=== PATIENT | female | born 1995 | race Caucasian/White ===

== ENCOUNTER 2020-04-18 12:04 | Emergency (ER) | payer OTHER ==
[~2020-04-18] VITALS: Ht 190 cm; Wt 106.5 kg
--- NOTE | 2020-04-18 13:22 | ED Cough/URI ---
General Chief Complaint: Respiratory Problems Stated Complaint: CP,SOB, Nursing Triage Note: PT PRESENTS TO ED VIA POV FROM HOME WITH COMPLAINTS OF CHEST TIGHTNESS X 3 DAYS, INCREASED WITH INSPIRATION. PT ALSO REPORTS FEELING SOA AND FATIGUED. PT WAS TESTED FOR COVID AT [facility] ON 04/16. REPORTS IT WAS NEGATIVE. Sepsis Screen: No Definite Risk Source: patient Exam Limitations: no limitations History of Present Illness Date Seen by Provider: Apr 18, 2020 Time Seen by Provider: 13:21 Initial Comments This is a 24-year-old male presents to the ER with complaints of chest tightness and cough that started on Thursday. Received COVID test at that time which was negative. States shortness of air is worse with activity. Presents with concerns that his initial Covid may have been a false negative. Denies fevers, chills, chest pain, nausea, vomiting, diarrhea, and abdominal pain. Allergies and Home Medications Allergies Coded Allergies: Penicillins (Verified Allergy, Unknown, 04/18/20) Home Medications Albuterol Sulfate 1 Puff Puff, 2 PUFF INH Q4H PRN for SHORTNESS OF BREATH 1 PUFF = 90 MCG Prescribed by: YANNICK KUMAR on 04/18/20 1519 Patient Home Medication List Home Medication List Reviewed: Yes Review of Systems Review of Systems Constitutional: see HPI EENTM: no symptoms reported Respiratory: no symptoms reported Cardiovascular: see HPI Gastrointestinal: no symptoms reported Genitourinary: no symptoms reported Musculoskeletal: no symptoms reported Skin: no symptoms reported Psychiatric/Neurological: No Symptoms Reported Hematologic/Lymphatic: No Symptoms Reported Immunological/Allergic: no symptoms reported Past Yyljuup-Qayqyj-Rtothp Hx Patient Social History Alcohol Use: Occasionally Uses Recreational Drug Use: No Smoking Status: Never a Smoker Recent Foreign Travel: No Contact w/Someone Who Travel: No Recent Infectious Disease Expo: No Recent Hopitalizations: No Physical Abuse: No Sexual Abuse: No Mistreated: No Fear: No Seasonal Allergies Seasonal Allergies: No Past Medical History Surgeries: Yes (HERNIA REPAIR) Respiratory: No Cardiac: No Neurological: No Genitourinary: No Gastrointestinal: No Musculoskeletal: No Endocrine: No HEENT: No Cancer: No Psychosocial: No Physical Exam Vital Signs - First Documented 04/18/20 12:29 Temp 36.6 Pulse 91 Resp 16 B/P (MAP) 120/83 (95) Pulse Ox 97 Capillary Refill : Less Than 3 Seconds Height: '" Weight: lbs. oz. kg; 29.00 BMI Method: General Appearance: WD/WN, no apparent distress HEENT: PERRL/EOMI, pharynx normal, other (Tonsils are surgically absent) Neck: full range of motion Respiratory: lungs clear, normal breath sounds, no respiratory distress, no accessory muscle use Cardiovascular: regular rate, rhythm, no murmur; No friction rub Gastrointestinal: normal bowel sounds, non tender, soft Neurologic/Psychiatric: no motor/sensory deficits, alert, normal mood/affect, oriented x 3 Skin: normal color, warm/dry Progress/Results/Core Measures Suspected Sepsis Recent Fever Within 48 Hours: No Infection Criteria Present: Suspected New Infection New/Unexplained Altered Menta: No Sepsis Screen: No Definite Risk SIRS Temperature: Pulse: 91 Respiratory Rate: 16 Laboratory Tests 04/18/20 13:44: White Blood Count 6.7 Blood Pressure 120 /83 Mean: 95 Laboratory Tests 04/18/20 13:44: Creatinine 0.95, Platelet Count 232, Total Bilirubin 0.7 Results/Orders Lab Results Laboratory Tests Test 04/18/20 13:44 04/18/20 13:47 Range/Units White Blood Count 6.7 4.3-11.0 10^3/uL Red Blood Count 5.34 H 3.80-5.11 10^6/uL Hemoglobin 14.7 11.5-16.0 g/dL Hematocrit 44 35-52 % Mean Corpuscular Volume 83 80-99 fL Mean Corpuscular Hemoglobin 28 25-34 pg Mean Corpuscular Hemoglobin Concent 33 32-36 g/dL Red Cell Distribution Width 12.1 10.0-14.5 % Platelet Count 232 130-400 10^3/uL Mean Platelet Volume 10.3 9.0-12.2 fL Immature Granulocyte % (Auto) 0 % Neutrophils (%) (Auto) 55 42-75 % Lymphocytes (%) (Auto) 31 12-44 % Monocytes (%) (Auto) 10 0-12 % Eosinophils (%) (Auto) 2 0-10 % Basophils (%) (Auto) 1 0-10 % Neutrophils # (Auto) 3.7 1.8-7.8 10^3/uL Lymphocytes # (Auto) 2.1 1.0-4.0 10^3/uL Monocytes # (Auto) 0.7 0.0-1.0 10^3/uL Eosinophils # (Auto) 0.1 0.0-0.3 10^3/uL Basophils # (Auto) 0.1 0.0-0.1 10^3/uL Immature Granulocyte # (Auto) 0.0 0.0-0.1 10^3/uL Sodium Level 140 135-145 MMOL/L Potassium Level 4.4 3.6-5.0 MMOL/L Chloride Level 105 98-107 MMOL/L Carbon Dioxide Level 23 21-32 MMOL/L Anion Gap 12 5-14 MMOL/L Blood Urea Nitrogen 10 7-18 MG/DL Creatinine 0.95 0.60-1.30 MG/DL Estimat Glomerular Filtration Rate > 60 BUN/Creatinine Ratio 11 Glucose Level 101 70-105 MG/DL Calcium Level 8.9 8.5-10.1 MG/DL Corrected Calcium 8.6 8.5-10.1 MG/DL Total Bilirubin 0.7 0.1-1.0 MG/DL Aspartate Amino Transf (AST/SGOT) 27 5-34 U/L Alanine Aminotransferase (ALT/SGPT) 25 0-55 U/L Alkaline Phosphatase 51 40-136 U/L C-Reactive Protein High Sensitivity 0.07 0.00-0.50 MG/DL Total Protein 7.8 6.4-8.2 GM/DL Albumin 4.4 3.2-4.5 GM/DL Coronavirus 2019 (DON) Negative Negative Troponin I < 0.028 <0.028 NG/ML My Orders Orders - YANNICK KUMAR APRN Chest Pa/Lat (2 View) (04/18/20 13:19) Cbc With Automated Diff (04/18/20 13:19) Comprehensive Metabolic Panel (04/18/20 13:19) Covid 19 Inhouse Test (04/18/20 13:19) Hs C Reactive Protein (04/18/20 13:19) Ekg Tracing (04/18/20 14:47) Troponin I (04/18/20 14:47) Vital Signs/I&O 04/18/20 04/18/20 12:29 15:26 Temp 36.6 36.6 Pulse 91 87 Resp 16 16 B/P (MAP) 120/83 (95) 132/74 (95) Pulse Ox 97 98 Capillary Refill : Less Than 3 Seconds Blood Pressure Mean: 95 Progress Note : Progress Note Initiated Covid and chest pain work-up. Labs and chest x-ray reviewed, all are unremarkable. CRP is within normal range which is reassuring for any inflammatory/infectious process. Reviewed findings with patient, recommended use of albuterol inhaler as needed for shortness of air and to follow-up with his primary care provider if symptoms persist. Also discussed returning to ER if symptoms worsened. Verbalized understanding and he is agreeable with discharge plan. Diagnostic Imaging Diagonstic Imaging: Xray Plain Films/CT/US/NM/MRI: chest Comments NAME: ADEN MONTEZ [facility] REC#: [id number] PT STATUS: DEP ER : 1995 PHYSICIAN: YANNICK KUMAR APRN ADMIT DATE: 04/18/20/ER Signed Date of Exam:04/18/20 CHEST PA/LAT (2 VIEW) INDICATION: Chest tightness. COMPARISON: None FINDINGS: Frontal and lateral views of the chest demonstrate normal heart size and pulmonary vascularity. The lungs are clear. There are no signs of infiltrate, pleural effusions or pneumothoraces. The visualized osseous structures show no acute abnormalities. IMPRESSION: 1. No acute process. No signs of infiltrates, effusions or pneumothoraces. Dictated by: Dictated on workstation # [id number] Dict: 04/18/20 1428 Trans: 04/18/20 1603 [facility] [id number] Interpreted by: ELEN JAY MD Electronically signed by: ELEN JAY MD 04/18/20 1603 Departure Impression Primary Impression: Costochondral pain Disposition: 01 HOME, SELF-CARE Condition: Stable/Unchanged Departure-Patient Inst. Decision time for Depature: 15:17 Referrals: CHAU DIXON MD (PCP/Family) Primary Care Physician Patient Instructions: Costochondritis Add. Discharge Instructions: Plan: 1. Discharge home. 2. May take Ibuprofen 600mg by mouth as needed for pain. Alternate with 650mg of Tylenol every 4 hours as needed. Take Ibuprofen with food. 3. Use Albuterol inhaler 2 puffs as needed for shortness of breath every 4 hours. 4. Return for any new or concerning symptoms. 5. Follow up with your primary care provider if symptoms persist. All discharge instructions reviewed with patient and/or family. Voiced understanding. Scripts Albuterol Sulfate (VENTOLIN HFA) 1 Puff Puff 2 PUFF INH Q4H PRN for SHORTNESS OF BREATH, #1 INHALER 0 Refills 1 PUFF = 90 MCG Prov: YANNICK KUMAR DRY WALL APPLICATOR 04/18/20 YANNICK KUMAR DRY WALL APPLICATOR Apr 18, 2020 13:22
[2020-04-18 13:48] LABS: BASOPHILS # (AUTO) 0.1 10^3/uL (0.0-0.1); BASOPHILS % (AUTO) 1 % (0-10); EOSINOPHILS # (AUTO) 0.1 10^3/uL (0.0-0.3); EOSINOPHILS % (AUTO) 2 % (0-10); HEMATOCRIT 44 % (35-52); HEMOGLOBIN 14.7 g/dL (11.5-16.0); LYMPHOCYTES # (AUTO) 2.1 10^3/uL (1.0-4.0); LYMPHOCYTES % (AUTO) 31 % (12-44); MEAN CORPUSCULAR HEMOGLOBIN 28 pg (25-34); MEAN CORPUSCULAR HGB CONC 33 g/dL (32-36); MEAN CORPUSCULAR VOLUME 83 fL (80-99); MEAN PLATELET VOLUME 10.3 fL (9.0-12.2); MONOCYTES # (AUTO) 0.7 10^3/uL (0.0-1.0); MONOCYTES % (AUTO) 10 % (0-12); NEUTROPHILS # (AUTO) 3.7 10^3/uL (1.8-7.8); NEUTROPHILS % (AUTO) 55 % (42-75); PLATELET COUNT 232 10^3/uL (130-400); WHITE BLOOD COUNT 6.7 10^3/uL (4.3-11.0)
[2020-04-18 13:59] LABS: ALBUMIN 4.4 GM/DL (3.2-4.5)
[2020-04-18 14:00] LABS: CHLORIDE 105 MMOL/L (98-107); POTASSIUM 4.4 MMOL/L (3.6-5.0); SODIUM 140 MMOL/L (135-145)
[2020-04-18 14:01] LABS: CALCIUM 8.9 MG/DL (8.5-10.1)
[2020-04-18 14:02] LABS: GLUCOSE 101 MG/DL (70-105); TOTAL PROTEIN 7.8 GM/DL (6.4-8.2)
[2020-04-18 14:03] LABS: CARBON DIOXIDE 23 MMOL/L (21-32)
[2020-04-18 14:04] LABS: BILIRUBIN,TOTAL 0.7 MG/DL (0.1-1.0)
[2020-04-18 14:05] LABS: ALKALINE PHOSPHATASE 51 U/L (40-136)
[2020-04-18 14:06] LABS: CREATININE SERUM 0.95 MG/DL (0.60-1.30); GFR ESTIMATED > 60
[2020-04-18 14:07] LABS: BUN/CREATININE RATIO 11
[2020-04-18 14:08] LABS: ALANINE AMINOTRANSFERASE 25 U/L (0-55)
--- NOTE | 2020-04-18 14:30 | Diagnostic Imaging Report ---
INDICATION: Chest tightness. COMPARISON: None FINDINGS: Frontal and lateral views of the chest demonstrate normal heart size and pulmonary vascularity. The lungs are clear. There are no signs of infiltrate, pleural effusions or pneumothoraces. The visualized osseous structures show no acute abnormalities. IMPRESSION: 1. No acute process. No signs of infiltrates, effusions or pneumothoraces. Dictated by: Dictated on workstation # [id number]
[2020-04-18] MEDS ORDERED: RT-ALBUINH INH (15:19)
[2020-04-18 15:26] VITALS: BP 132/74
== END 2020-04-18 15:26 | disposition home or self-care (01) ==
LOC: EDUNIT# 12:04 → ER 12:07
DX: R07.1 Chest pain on breathing (principal); Z20.828 Contact with and (suspected) exposure to other viral communicable diseases; Z88.0 Allergy status to penicillin
CPT/HCPCS: 71046; 80053; 84484; 85025; 86141; 93005; 99284; U0002; 36415; 87635

== ENCOUNTER 2021-08-13 11:29 | Day surgery (SDC) | payer OTHER ==
[~2021-08-13] VITALS: Ht 190.5 cm; Wt 113.3 kg
[2021-08-13] VITALS (9 sets, daily range): BP systolic 114–120; BP diastolic 73–83
[~2021-08-13 11:29] MED LIST: RT-ALBUINH INH
[2021-08-13] MEDS ORDERED: NS IV 1000 ML 1,000 ML IV SCH (12:00)
--- NOTE | 2021-08-13 12:00 | ED Abdominal Pain ---
General Chief Complaint: Abdominal/GI Problems Stated Complaint: ABD PAIN Source of Information: Patient Exam Limitations: No Limitations History of Present Illness Date Seen by Provider: Aug 13, 2021 Time Seen by Provider: 11:53 Initial Comments Patient is a 26-year-old male who presents to the emergency department today with a chief complaint of right lower quadrant abdominal pain. Patient states he has had gradual onset of symptoms over about the last week or so. He has not really taken anything for the pain, yesterday he complains that he had some loose stool, nonblack nonbloody. He states the pain steadily increased last night where he was not able to sleep very well. He still did not take anything for the pain. Appetite was slightly decreased yesterday evening. He states this morning when he woke up he had a little discomfort with urination and his urine seemed darker than normal. He is very slightly nauseous. He has not had anything to eat today his only intake has been a vitamin when he woke up and a half a cup of water at about 930. He reports no fevers or chills. No recent URI symptoms. He has not had any prior abdominal surgeries but did have a hernia repair, he cannot remember which side was repaired. Currently rating his pain a "6". Declines pain medications because he states as long as he is still he has really no discomfort. All other review of systems reviewed and negative except as stated Timing/Duration: 1 Week Severity/Quality: Moderate, Aching Location: RLQ Radiation: No Radiation Modifying Factors: Worsens With Movement Associated Symptoms: Nausea/Vomiting (mild) Allergies and Home Medications Allergies Coded Allergies: Penicillins (Verified Allergy, Unknown, 04/18/20) Patient Home Medication List Home Medication List Reviewed: Yes Albuterol Sulfate (Ventolin Hfa) 1 Puff Puff, 2 PUFF INH Q4H PRN for SHORTNESS OF BREATH Prescribed by: YANNICK KUMAR on 04/18/20 3456 Review of Systems Review of Systems Constitutional: see HPI EENTM: No Symptoms Reported Respiratory: No Symptoms Reported Cardiovascular: No Symptoms Reported Gastrointestinal: Abdominal Pain, Diarrhea (loose stool yesterday), Nausea (mild) Genitourinary: Burning (slight with urination today - urine darker than normal today) Musculoskeletal: no symptoms reported Skin: no symptoms reported Psychiatric/Neurological: No Symptoms Reported All Other Systems Reviewed Negative Unless Noted: Yes Past Lokcoix-Iplami-Htuszc Hx Patient Social History Tobacco Use?: No Use of E-Cig and/or Vaping dev: No Substance use?: No Alcohol Use?: No Immunizations Up To Date Influenza Vaccine Up-to-Date: No; Not Current Seasonal Allergies Seasonal Allergies: No Past Medical History Surgeries: Yes (HERNIA REPAIR) Respiratory: No Cardiac: No Neurological: No Genitourinary: No Gastrointestinal: No Musculoskeletal: No Endocrine: No HEENT: No Cancer: No Psychosocial: No Physical Exam Vital Signs Vital Signs - First Documented 08/13/21 11:42 Temp 35.8 Pulse 110 Resp 18 B/P (MAP) 142/82 (102) Pulse Ox 95 Capillary Refill : Height/Weight/BMI Height: '" Weight: lbs. oz. kg; 29.00 BMI Method: General Appearance: WD/WN, no apparent distress HEENT: PERRL/EOMI, pharynx normal Neck: supple, normal inspection Respiratory: lungs clear, normal breath sounds, no respiratory distress, no accessory muscle use Cardiovascular: regular rate, rhythm Gastrointestinal: soft, abnormal bowel sounds (quiet), rebound (RLQ), tenderness, other (slight heel tap; + Rovsing's) Rectal: deferred Extremities: normal range of motion, non-tender, normal inspection, no pedal edema, normal capillary refill Back: normal inspection, no CVA tenderness Neurologic/Psychiatric: alert, normal mood/affect, oriented x 3 Skin: normal color, warm/dry Progress/Results/Core Measures Results/Orders Lab Results Laboratory Tests Test 08/13/21 11:51 08/13/21 13:16 Range/Units White Blood Count 12.4 H 4.3-11.0 10^3/uL Red Blood Count 5.43 4.30-5.52 10^6/uL Hemoglobin 15.0 13.3-17.7 g/dL Hematocrit 44 40-54 % Mean Corpuscular Volume 80 80-99 fL Mean Corpuscular Hemoglobin 28 25-34 pg Mean Corpuscular Hemoglobin Concent 35 32-36 g/dL Red Cell Distribution Width 12.5 10.0-14.5 % Platelet Count 279 130-400 10^3/uL Mean Platelet Volume 10.5 9.0-12.2 fL Immature Granulocyte % (Auto) 0 % Neutrophils (%) (Auto) 70 42-75 % Lymphocytes (%) (Auto) 19 12-44 % Monocytes (%) (Auto) 9 0-12 % Eosinophils (%) (Auto) 1 0-10 % Basophils (%) (Auto) 0 0-10 % Neutrophils # (Auto) 8.7 H 1.8-7.8 10^3/uL Lymphocytes # (Auto) 2.4 1.0-4.0 10^3/uL Monocytes # (Auto) 1.1 H 0.0-1.0 10^3/uL Eosinophils # (Auto) 0.1 0.0-0.3 10^3/uL Basophils # (Auto) 0.1 0.0-0.1 10^3/uL Immature Granulocyte # (Auto) 0.0 0.0-0.1 10^3/uL Sodium Level 137 135-145 MMOL/L Potassium Level 4.3 3.6-5.0 MMOL/L Chloride Level 102 98-107 MMOL/L Carbon Dioxide Level 22 21-32 MMOL/L Anion Gap 13 5-14 MMOL/L Blood Urea Nitrogen 10 7-18 MG/DL Creatinine 0.99 0.60-1.30 MG/DL Estimat Glomerular Filtration Rate 107 BUN/Creatinine Ratio 10 Glucose Level 105 70-105 MG/DL Calcium Level 9.4 8.5-10.1 MG/DL Corrected Calcium 9.0 8.5-10.1 MG/DL Total Bilirubin 1.6 H 0.1-1.0 MG/DL Aspartate Amino Transf (AST/SGOT) 20 5-34 U/L Alanine Aminotransferase (ALT/SGPT) 25 0-55 U/L Alkaline Phosphatase 50 40-136 U/L Total Protein 8.2 6.4-8.2 GM/DL Albumin 4.5 3.2-4.5 GM/DL My Orders Orders - SONIA SORENSEN MD Ed Iv/Invasive Line Start (08/13/21 11:59) Cbc With Automated Diff (08/13/21 11:59) Comprehensive Metabolic Panel (08/13/21 11:59) Ua Culture If Indicated (08/13/21 11:59) Ct Abd/Pelv W (Appendicitis) (08/13/21 11:59) Ns Iv 1000 Ml (Sodium Chloride 0.9%) (08/13/21 12:00) Iohexol Injection (Omnipaque 350 Mg/Ml 1 (08/13/21 12:15) Received Contrast (Hold Metformin- Contr (08/13/21 12:15) Sodium Chloride Flush (Catheter Flush Sy (08/13/21 12:15) Ns (Ivpb) (Sodium Chloride 0.9% Ivpb Bag (08/13/21 12:15) Medications Given in ED Current Medications Medications Dose Ordered Sig/Amy Route Start Time Stop Time Status Last Admin Dose Admin Iohexol 100 ml ONCE ONCE IV 08/13/21 12:15 08/13/21 12:16 DC 08/13/21 13:06 100 ML Sodium Chloride 10 ml NEEDED PRN IV 08/13/21 12:15 08/13/21 13:07 10 ML Sodium Chloride 100 ml ONCE ONCE IV 08/13/21 12:15 08/13/21 12:16 DC 08/13/21 13:06 80 ML Vital Signs/I&O 08/13/21 11:42 Temp 35.8 Pulse 110 Resp 18 B/P (MAP) 142/82 (102) Pulse Ox 95 Admisison Planning May Need Admission (Planning): 13:20 Progress Progress Note : Time: 13:29 Progress Note Patient reassessed, resting comfortably, as long as he is not moving he has no pain. He is not very nauseated right now. He continues to decline pain medicines. I advised him of the findings of his CAT scan showing acute appendicitis. I have consulted with Dr. Morris he will send a med student down to see the patient. Anticipate surgery this afternoon and hopefully discharge this evening. Patient is comfortable with plan of care. Diagnostic Imaging Diagonstic Imaging: [facility] [place] [place] NAME: ADEN MONTEZ [facility] REC#: [id number] PT STATUS: REG ER : 1995 PHYSICIAN: SONIA SORENSEN MD ADMIT DATE: 08/13/21/ER Draft Date of Exam:08/13/21 CT ABD/PELV W (APPENDICITIS) PROCEDURE: CT abdomen and pelvis with contrast, rule out appendicitis. TECHNIQUE: Multiple contiguous axial images were obtained through the abdomen and pelvis after the administration of intravenous contrast. All CT scans use one or more of the following dose optimizing techniques: Automated exposure control, MA and/or KvP adjustment based on patient size and exam type or iterative reconstruction. INDICATION: Right lower quadrant abdominal pain. FINDINGS: There is no focal hepatic, gallbladder, pancreatic, adrenal gland, or splenic lesion identified. Kidneys are also unremarkable. Colon is largely collapsed. There is thickening of the appendix with associated appendicolith and periappendiceal inflammation. No abscess is identified. There is no significant pneumoperitoneum. Unopacified urinary bladder is unremarkable. IMPRESSION: Findings are compatible with acute appendicitis without periappendiceal abscess or pneumoperitoneum identified. Dictated on workstation # [id number] Dict: 08/13/21 1308 Trans: 08/13/21 1313 [id number] Interpreted by: GUILLERMO JARVIS MD Electronically signed by: Departure Communication (Admissions) Time/Spoke to Admitting Phy: 13:[address] Morris's medical student Mayra; he will be down to see after surg Impression Primary Impression: Appendicitis Qualified Codes: K35.30 - Acute appendicitis with localized peritonitis, without perforation or gangrene Disposition: ADMITTED INPATIENT Condition: Stable Admissions Decision to Admit Reason: Admit from ER (General) Decision to Admit/Date: Aug 13, 2021 Time/Decision to Admit Time: 13:30 Departure-Patient Inst. Referrals: CHAU DIXON MD (PCP/Family) Primary Care Physician SONIA SORENSEN MD Aug 13, 2021 12:00
[2021-08-13 12:07] LABS: BASOPHILS # (AUTO) 0.1 10^3/uL (0.0-0.1); BASOPHILS % (AUTO) 0 % (0-10); EOSINOPHILS # (AUTO) 0.1 10^3/uL (0.0-0.3); EOSINOPHILS % (AUTO) 1 % (0-10); HEMATOCRIT 44 % (40-54); LYMPHOCYTES # (AUTO) 2.4 10^3/uL (1.0-4.0); LYMPHOCYTES % (AUTO) 19 % (12-44); MEAN CORPUSCULAR HEMOGLOBIN 28 pg (25-34); MEAN CORPUSCULAR HGB CONC 35 g/dL (32-36); MEAN CORPUSCULAR VOLUME 80 fL (80-99); MEAN PLATELET VOLUME 10.5 fL (9.0-12.2); MONOCYTES # (AUTO) 1.1 10^3/uL (0.0-1.0); MONOCYTES % (AUTO) 9 % (0-12); NEUTROPHILS # (AUTO) 8.7 10^3/uL (1.8-7.8); NEUTROPHILS % (AUTO) 70 % (42-75); PLATELET COUNT 279 10^3/uL (130-400); WHITE BLOOD COUNT 12.4 10^3/uL (4.3-11.0)
[2021-08-13 12:09] LABS: ALBUMIN 4.5 GM/DL (3.2-4.5)
[2021-08-13 12:10] LABS: POTASSIUM 4.3 MMOL/L (3.6-5.0)
[2021-08-13 12:11] LABS: CALCIUM 9.4 MG/DL (8.5-10.1)
[2021-08-13 12:12] LABS: TOTAL PROTEIN 8.2 GM/DL (6.4-8.2)
[2021-08-13 12:14] LABS: BILIRUBIN,TOTAL 1.6 MG/DL (0.1-1.0)
[2021-08-13 12:15] LABS: CREATININE SERUM 0.99 MG/DL (0.60-1.30)
[2021-08-13] MEDS ORDERED: CATHETER FLUSH 10 ML SYR IV PRN ×2 (12:15→12:30)
[2021-08-13] MEDS ORDERED: NS 100 ML (IVPB) BAG IV ONE ×2 (12:15→12:30)
[2021-08-13] MEDS ORDERED: IOHEXOL 350 MG/ML 100 ML (OMNIPAQUE 350) VIAL IV ONE ×2 (12:15→12:30)
[2021-08-13] MEDS ORDERED: HOLD METFORMIN - RECEIVED CONTRAST 20 ML VIAL IV SCH ×2 (12:15→12:30)
--- NOTE | 2021-08-13 13:13 | Diagnostic Imaging Report ---
PROCEDURE: CT abdomen and pelvis with contrast, rule out appendicitis. TECHNIQUE: Multiple contiguous axial images were obtained through the abdomen and pelvis after the administration of intravenous contrast. All CT scans use one or more of the following dose optimizing techniques: Automated exposure control, MA and/or KvP adjustment based on patient size and exam type or iterative reconstruction. INDICATION: Right lower quadrant abdominal pain. FINDINGS: There is no focal hepatic, gallbladder, pancreatic, adrenal gland, or splenic lesion identified. Kidneys are also unremarkable. Colon is largely collapsed. There is thickening of the appendix with associated appendicolith and periappendiceal inflammation. No abscess is identified. There is no significant pneumoperitoneum. Unopacified urinary bladder is unremarkable. IMPRESSION: Findings are compatible with acute appendicitis without periappendiceal abscess or pneumoperitoneum identified. Dictated by: Dictated on workstation # [id number]
[2021-08-13 13:29] LABS: BILIRUBIN,URINE NEGATIVE (NEGATIVE); CLARITY,URINE CLEAR; COLOR,URINE YELLOW; GLUCOSE, URINE (UA) NEGATIVE (NEGATIVE); KETONES,URINE NEGATIVE (NEGATIVE); LEUKOCYTE ESTERASE ,URINE NEGATIVE (NEGATIVE); NITRITE,URINE NEGATIVE (NEGATIVE); PH,URINE 6.5 (5-9); PROTEIN,URINE NEGATIVE (NEGATIVE)
[2021-08-13] MEDS ORDERED: LACTATED RINGERS 1,000 ML IV SCH (13:45)
--- NOTE | 2021-08-13 13:49 | Consultation - Surgery ---
WILBER MATHIS MED STUDENT 08/13/21 1349: History of Present Illness History of Present Illness Patient Consulted On(lilo/time) 08/13/21 13:44 Date Seen by Provider: Aug 13, 2021 Time Seen by Provider: 13:30 Reason for Visit: Consult for Acute appendicitis History of Present Illness 26 yo male who presented to ED for RLQ abdominal pain. Pt has no significant past medical hx. Past surgical hx includes an inguinal hernia repair in 2013. Pt reports he has had RLQ discomfort for two weeks that progressed to severe pain last night. Pt reports moving makes it worse and lying still makes it better. Pt rates the pain 5/10 currently and denies radiation of pain. Pt reports he drank a cup of water with a multivitamin at 1030 this morning. Pt confirms diarrhea, loss of appetite and burning with urination. Pt denies fever, chills, N/V/C, CP, palpitations, SOA, cough. CT on 08/13 shows acute appendicitis. Allergies and Home Medications Allergies Coded Allergies: Penicillins (Verified Allergy, Unknown, 04/18/20) Patient Home Medication List Albuterol Sulfate (Ventolin Hfa) 1 Puff Puff, 2 PUFF INH Q4H PRN for SHORTNESS OF BREATH Prescribed by: YANNICK KUMAR on 04/18/20 5552 Past Pilrckv-Geydmo-Ribuoc Hx Patient Social History Smoking Status: Never a Smoker Recent Hopitalizations: No Alcohol Use?: No Have you traveled recently?: No Seasonal Allergies Seasonal Allergies: No Surgeries History of Surgeries: Yes (HERNIA REPAIR) Respiratory History of Respiratory Disorde: No Cardiovascular History of Cardiac Disorders: No Neurological History of Neurological Disord: No Genitourinary History of Genitourinary Disor: No Gastrointestinal History of Gastrointestinal Di: No Musculoskeletal History of Musculoskeletal Dis: No Endocrine History of Endocrine Disorders: No HEENT History of HEENT Disorders: No Cancer History of Cancer: No Psychosocial History of Psychiatric Problem: No Review of Systems-General Constitutional: No chills, No fever EENTM: No blurred vision, No vision loss Respiratory: No cough, No short of breath Cardiovascular: No chest pain, No palpitations Gastrointestinal: abdominal pain (RLQ); No constipation; diarrhea; No nausea, No vomiting Genitourinary: dysuria; No frequency Musculoskeletal: no symptoms reported Skin: no symptoms reported Psychiatric/Neurological: Denies Anxiety, Denies Depressed Physical Exam-General Problems Physical Exam Vital Signs Vital Signs - First Documented 08/13/21 11:42 Temp 35.8 Pulse 110 Resp 18 B/P (MAP) 142/82 (102) Pulse Ox 95 Capillary Refill : General Appearance: WD/WN, mild distress HEENT: PERRL/EOMI, normal ENT inspection Neck: non-tender, full range of motion, supple, normal inspection Respiratory: chest non-tender, lungs clear, normal breath sounds, no respiratory distress, no accessory muscle use Cardiovascular: no edema, no JVD, tachycardia Gastrointestinal: abnormal bowel sounds (hypoactive ), tenderness (RLQ tender to palpation) Extremities: normal range of motion, non-tender, normal inspection, no pedal edema, no calf tenderness, normal capillary refill Neurologic/Psychiatric: able bodied tankerman II-XII nml as tested, alert, normal mood/affect, oriented x 3 Skin: normal color, warm/dry Lymphatic: no adenopathy Data Review Labs Laboratory Tests 08/13/21 11:51: White Blood Count 12.4H, Red Blood Count 5.43, Hemoglobin 15.0, Hematocrit 44, Mean Corpuscular Volume 80, Mean Corpuscular Hemoglobin 28, Mean Corpuscular Hemoglobin Concent 35, Red Cell Distribution Width 12.5, Platelet Count 279, Mean Platelet Volume 10.5, Immature Granulocyte % (Auto) 0, Neutrophils (%) (Auto) 70, Lymphocytes (%) (Auto) 19, Monocytes (%) (Auto) 9, Eosinophils (%) (Auto) 1, Basophils (%) (Auto) 0, Neutrophils # (Auto) 8.7H, Lymphocytes # (Auto) 2.4, Monocytes # (Auto) 1.1H, Eosinophils # (Auto) 0.1, Basophils # (Auto) 0.1, Immature Granulocyte # (Auto) 0.0, Sodium Level 137, Potassium Level 4.3, Chloride Level 102, Carbon Dioxide Level 22, Anion Gap 13, Blood Urea Nitrogen 10, Creatinine 0.99, Estimat Glomerular Filtration Rate 107, BUN/Creat inine Ratio 10, Glucose Level 105, Calcium Level 9.4, Corrected Calcium 9.0, Total Bilirubin 1.6H, Aspartate Amino Transf (AST/SGOT) 20, Alanine Aminotransferase (ALT/SGPT) 25, Alkaline Phosphatase 50, Total Protein 8.2, Albumin 4.5 4/5/22 13:16: Assessment/Plan Assessment/Plan Assessment/Plan Acute appendicitis Leukocytosis Obesity NPO Start clindamycin and flagyl. IV fluids Plan to do appendectomy today. Obtain consent appendectomy with all other indicated procedures. IRMA MORRIS DO 08/13/21 1606: History of Present Illness History of Present Illness History of Present Illness Seen and evaluated in ED. Patient is a 26 year old male with rlq abdominal pain. Has had on and off for 2 weeks but last night severe pain. Sharp pain. Currently 5/10. No radiation of pain. Movement makes worse, holding still makes better. Ct reviewed and consistent with acute appendicitis. Allergies and Home Medications Allergies Coded Allergies: Penicillins (Verified Allergy, Unknown, 04/18/20) Patient Home Medication List Home Medication List Reviewed: Yes Albuterol Sulfate (Ventolin Hfa) 1 Puff Puff, 2 PUFF INH Q4H PRN for SHORTNESS OF BREATH Prescribed by: YANNICK KUMAR on 04/18/20 1925 Past Ykqbhrn-Urzbsf-Csonpo Hx Surgeries History of Surgeries: Yes (hernia repair) Reviewed Nursing Assessment Reviewed/Agree w Nursing PMH: Yes Family Medical History Significant Family History: No Pertinent Family Hx Review of Systems-General Constitutional: No chills, No fever EENTM: No blurred vision, No vision loss Respiratory: No cough, No short of breath Cardiovascular: No chest pain, No palpitations Gastrointestinal: abdominal pain (RLQ); No constipation; diarrhea; No nausea, N o vomiting Genitourinary: dysuria; No frequency Musculoskeletal: No back pain, No joint pain Skin: No change in color, No change in hair/nails Psychiatric/Neurological: Denies Anxiety, Denies Depressed, Denies Emotional Problems All Other Systems Reviewed Negative Unless Noted: Yes (Negative excepted noted.) Physical Exam-General Problems Physical Exam General Appearance: WD/WN, no apparent distress HEENT: PERRL/EOMI, normal ENT inspection Neck: non-tender, supple Respiratory: chest non-tender, no respiratory distress, no accessory muscle use Cardiovascular: no JVD, tachycardia Gastrointestinal: soft, tenderness (RLQ tender to palpation) Rectal: deferred Back: no CVA tenderness, no vertebral tenderness Extremities: non-tender, normal inspection, no pedal edema Neurologic/Psychiatric: alert, normal mood/affect, oriented x 3 Skin: normal color, warm/dry Lymphatic: no adenopathy Assessment/Plan Assessment/Plan Assessment/Plan Acute appendicitis Leukocytosis Obesity NPO Preop clindamycin and flagyl. IV fluids Plan to do appendectomy today. Discussed risks and benefits and wishes to proceed with laparoscopic appendectomy all other indicated procedures. Supervisory-Addendum Brief Verification & Attestation Participated in pt care: history, MDM, physical Personally performed: exam, history, MDM, supervision of care Care discussed with: Medical Student Procedures: n/a Results interpretation: Verified all documentation Verification and Attestation of Medical Student E/M Service A medical student performed and documented this service in my presence. I reviewed and verified all information documented by the medical student and made modifications to such information, when appropriate. I personally performed the physical exam and medical decision making. Irma Morris, Aug 13, 2021,16:09 WILBER MATHIS MED STUDENT Aug 13, 2021 13:49 IRMA MORRIS DO Aug 13, 2021 16:06
[2021-08-13 13:53] LABS: BACTERIA,URINE TRACE /HPF; SQUAMOUS EPITHELIAL CELL,UR 0-2 /HPF
[2021-08-13] MEDS ORDERED: CLINDAMYCIN 600 MG/50 ML IVPB 50 ML IV SCH (14:00)
[2021-08-13] MEDS ORDERED: LIDOCAINE/EPI 2% 1:100,00 (XYLOCAINE) 20 ML VIAL ONE (14:07)
[2021-08-13] MEDS ORDERED: ONDANSETRON 4 MG/2 ML (SDV) Z0FRAN ONE (14:27)
[2021-08-13] MEDS ORDERED: LIDOCAINE PF 2% 5 ML (XYLOCAINE) VIAL ONE (14:27)
[2021-08-13] MEDS ORDERED: GLYCOPYRROLATE 0.2 MG/ML (ROBINUL) 2 ML VIAL ONE (14:27)
[2021-08-13] MEDS ORDERED: proPOfol 200 MG/20 ML (DIPRIVAN) VIAL IV ONE (14:27)
[2021-08-13] MEDS ORDERED: ROCURONIUM 10 MG/ML 5 ML SYRINGE IV ONE (14:27)
[2021-08-13] MEDS ORDERED: NEOSTIGMINE 3 MG/3 ML VIAL ONE (14:27)
[2021-08-13] MEDS ORDERED: fentaNYL INJ 100 MCG/2 ML AMP ONE (14:28)
[2021-08-13] MEDS ORDERED: MIDAZOLAM 2 MG/2 ML (VERSED) VIAL ONE (14:28)
[2021-08-13] MEDS ORDERED: LACTATED RINGERS 1,000 ML IV PRN (14:30)
[2021-08-13] MEDS: LACTATED RINGERS 1,000 ML IV PRN ×2 (15:46→16:31)
[2021-08-13] MEDS: metroNIDAZOLE 500MG/100ML IVPB IV ONE (16:10)
[2021-08-13] MEDS ORDERED: DOCU-143 PO (16:48)
[2021-08-13] MEDS ORDERED: ACHD5005 PO (16:48)
[2021-08-13] MEDS ORDERED: SEVOFLURANE (ULTANE) 15 ML INHAL SOLN ONE (16:49)
--- NOTE | 2021-08-13 16:49 | Discharge Inst-Simple/Standard ---
Discharge Inst-Standard Discharge Medications New, Converted or Re-Newed RX: Transmitted to Pharmacy Patient Instructions/Follow Up Plan of Care/Instructions/FU: 2 weeks Arturo Activity as Tolerated: No Discharge Diet: Regular Diet Other Inst to Patient Follow up Appt: Make appointment for 2 week. Instructions: No lifting greater than 10 pounds. No strenuous activity. May shower in 24 hours, no tub bath or soaking. Use incentive spirometer at home as directed. No Smoking Skin/Wound Care: You have special glue over your incision that will fall off on it's own. Symptoms to Report: Appetite Changes, Extremity Discoloration, Numbness/Tingling, Swelling Increased, Bleeding Excessive, Eyesight Changes, Pain Increased, Urine Color Change, Constipation(Persistent), Fever over 101 degree F, Pain/Pressure in chest, Urinating Difficulty, Cough Up/Vomit Blood, Heart Beat Irreg/Pounding, Pain/Pressure in jaw, Vaginal Bleeding Increase, Cramps in feet or legs, Lightheadedness, Pain/Pressure in shoulder, Diarrhea(Persistent), Memory Changes Suddenly, Questions/Concerns, Weight gain consecutive days, Dizziness/Fainting, Nausea/Vomiting, Shortness of Breath, Weight gain over 2 pounds If questions or concerns contact your physician Or seek help at emergency department. IRMA WARD DO Aug 13, 2021 16:49
--- NOTE | 2021-08-13 16:50 | Progress Note-Post Operative ---
Post-Operative Progess Note Surgeon (s)/Shorer (s) Surgeon IRMA WARD DO Shorer: na Pre-Operative Diagnosis acute appendicitis Post-Operative Diagnosis same Procedure & Operative Findings Date of Procedure 08/13/21 Procedure Performed/Findings PROCEDURE: Laparoscopic appendectomy. COMPLICATIONS: None. INDICATIONS: The patient is a 26 year old male who has been having right lower quadrant abdominal pain. Patient's exam consistent with appendicitis. I discussed risk and benefits of laparoscopic appendectomy and all indicated procedures with the possibility being a normal appendix. The patient understands the risks and benefits and wishes to proceed. Consent was signed on the chart. DESCRIPTION OF PROCEDURE: The patient was taken to the operating suite, prepped and draped in a sterile fashion. Timeout was performed. Local anesthetic was infiltrated just above the umbilicus and 11-blade scalpel was used to make a skin incision. Cautery was used to dissect down to the fascia and scored. Kochers were used to grasp and elevate it and the abdomen was then entered. A 0 Vicryl was placed in a velgfy-li-skrbf fashion for closure at the end of the case. The balloon trocar was inserted into the abdomen and pneumoperitoneum was achieved. Under direct visualization of the laparoscope, a 5 mm trocar was placed in the suprapubic region and a 5 mm trocar was placed in the left lower quadrant. Appendix was located, Inflamed dilated appendix. The base of the appendix was dissected around. Once at the base an Endo-JOY 2.5 stapler was then fired across the base of the appendix. The mesoappendix was then divided. It was then placed in an Endobag and removed through the 12 mm trocar site. The abdomen was then irrigated and suctioned. No other pathology noted. The abdomen was then desufflated and the trocars were removed. The 0 Vicryl placed at the beginning of the case was then tied closing the 12 mm fascial defect. The skin was then closed using 4-0 Monocryl in a subcuticular fashion. The abdomen was then washed and dried and Skin Affix was placed over the incisions. The patient tolerated the procedure well without any complications and was taken to the recovery room in stable condition. Anesthesia Type general Estimated Blood Loss Estimated blood loss (mL): minimal Specimens/Packing Specimens Removed appendix IRMA WARD DO Aug 13, 2021 16:50
[2021-08-13] MEDS ORDERED: morphine INJ 10 MG/ML 1ML (SYR OR VIAL) ONE (17:14)
[2021-08-13] MEDS ORDERED: ONDANSETRON 4 MG/2 ML (SDV) Z0FRAN IVP PRN (17:15)
[2021-08-13] MEDS ORDERED: HYDROmorphone 2 MG/ML VIAL (DILAUDID) IV ONE (17:15)
[2021-08-13] MEDS ORDERED: morphine INJ 10 MG/ML 1ML (SYR OR VIAL) IVP ONE (17:15)
--- NOTE | 2021-08-13 17:25 | Anesthesia-General Post-Op ---
General Patient Condition Mental Status/LOC: Same as Preop Cardiovascular: Satisfactory Nausea/Vomiting: Absent Respiratory: Satisfactory Pain: Controlled Complications: Absent Post Op Complications Complications None Follow Up Care/Instructions Patient Instructions None needed. Anesthesia/Patient Condition Patient Condition Patient is doing well in PACU, no complaints, stable vital signs, no apparent adverse anesthesia problems. ADRIEN COPE DO Aug 13, 2021 17:25
== END 2021-08-13 18:55 | disposition home or self-care (01) ==
LOC: EDUNIT# 11:29 → ER 11:31 → SDC 16:22
PROVIDERS: ATTEND Surgery
DX: K35.80 Unspecified acute appendicitis (principal); E66.9 Obesity, unspecified; Z68.31 Body mass index [BMI] 31.0-31.9, adult
CPT/HCPCS: 36415; 74177; 80053; 81000; 85025

== ENCOUNTER 2022-08-19 16:27 | Emergency (ER) | payer OTHER ==
[~2022-08-19] VITALS: Ht 190 cm; Wt 122.0 kg
[~2022-08-19 16:27] MED LIST changes: +ACHD5005 PO; +DOCU-143 PO
--- NOTE | 2022-08-19 16:47 | ED Chest Pain ---
General Chief Complaint: Chest Pain Stated Complaint: CHEST PAIN Nursing Triage Note: PT STATES CP FOR A COUPLE DAYS, UPPER LT PAIN AND STATES HEART RACING Source: patient Exam Limitations: no limitations History of Present Illness Date Seen by Provider: Aug 19, 2022 Time Seen by Provider: 16:34 Initial Comments 27-year-old male presents to the ED with complaints of intermittent chest pain for the last few days. Reports the pain is located at the left sternal border. He also reports pain that radiates straight into his back near the left shoulder blade. He reports he currently does not have any pain right now. Last episode was approximately half hour prior to arrival. He reports that this morning he woke up short of air, and has felt short of breath all day. Reports it feels like he cannot take a deep breath. Reports he has not been eating well the last few days. He reports he becomes gassy when he eats. States he has been taking Tums, reports it is kind of helping. He reports he is also had a cough. Reports mild abdominal pain, states this has been going on for a year, no change with abdominal pain, reports he is also had loose stools for a year. Reports he has been seen by his primary for this. Denies fevers, nausea, vomiting. Denies any past medical history, does not take any medications. Allergies and Home Medications Allergies Coded Allergies: Penicillins (Verified Allergy, Unknown, 04/18/20) Patient Home Medication List Home Medication List Reviewed: Yes Albuterol Sulfate (Ventolin Hfa) 1 Puff Puff, 2 PUFF INH Q4H PRN for SHORTNESS OF BREATH Prescribed by: YANNICK KUMAR on 04/18/20 1519 Docusate Sodium (Colace) 100 Mg Capsule, 100 MG PO BID Prescribed by: IRMA WARD on 08/13/21 1648 Hydrocodone/Acetaminophen (Hydrocodone-Acetamin 5-325 mg) 1 Each Tablet, 1 EACH PO Q4H PRN for PAIN-MODERATE (5-7) Prescribed by: IRMA WARD on 08/13/21 1648 Review of Systems Review of Systems Constitutional: see HPI Past Nicjhbl-Nzlmmr-Mbrmvc Hx Patient Social History Tobacco Use?: No Substance use?: No Alcohol Use?: Yes Alcohol Frequency: Rarely Immunizations Up To Date Third COVID19 Vaccination Date: YES Seasonal Allergies Seasonal Allergies: No Past Medical History Surgery/Hospitalization HX: APPE, HERNIA, CHEST SURGERY A CHILD Surgeries: Yes (hernia repair) Respiratory: No Currently Using CPAP: No Currently Using BIPAP: No Cardiac: No Neurological: No Genitourinary: No Gastrointestinal: No Musculoskeletal: No Endocrine: No HEENT: No Cancer: No Psychosocial: No Family Medical History No Pertinent Family Hx Physical Exam Vital Signs Vital Signs - First Documented 08/19/22 16:29 Temp 36.8 Pulse 86 Resp 20 B/P (MAP) 147/87 (107) Pulse Ox 97 O2 Delivery Room Air Capillary Refill : Less Than 3 Seconds Height, Weight, BMI Height: '" Weight: lbs. oz. kg; 33.00 BMI Method: General Appearance: No Apparent Distress, WD/WN Neck: Normal Inspection, Supple Respiratory: Lungs Clear, Normal Breath Sounds, No Accessory Muscle Use, No Respiratory Distress, Other (Mild tenderness to palpation of chest) Cardiovascular: Regular Rate, Rhythm, No Edema, No Gallop, No JVD, No Murmur Gastrointestinal: Normal Bowel Sounds, Non Tender, Soft Extremity: Normal Inspection, Normal Range of Motion Neurologic/Psychiatric: Alert, Normal Mood/Affect Skin: Normal Color, Warm/Dry Progress/Results/Core Measures Results/Orders Lab Results Laboratory Tests Test 08/19/22 16:39 08/19/22 17:35 08/19/22 18:51 Range/Units White Blood Count 8.4 4.3-11.0 10^3/uL Red Blood Count 5.41 4.30-5.52 10^6/uL Hemoglobin 14.9 13.3-17.7 g/dL Hematocrit 43 40-54 % Mean Corpuscular Volume 80 80-99 fL Mean Corpuscular Hemoglobin 28 25-34 pg Mean Corpuscular Hemoglobin Concent 35 32-36 g/dL Red Cell Distribution Width 12.5 10.0-14.5 % Platelet Count 264 130-400 10^3/uL Mean Platelet Volume 10.7 9.0-12.2 fL Immature Granulocyte % (Auto) 1 % Neutrophils (%) (Auto) 46 42-75 % Lymphocytes (%) (Auto) 40 12-44 % Monocytes (%) (Auto) 11 0-12 % Eosinophils (%) (Auto) 2 0-10 % Basophils (%) (Auto) 1 0-10 % Neutrophils # (Auto) 3.8 1.8-7.8 10^3/uL Lymphocytes # (Auto) 3.4 1.0-4.0 10^3/uL Monocytes # (Auto) 0.9 0.0-1.0 10^3/uL Eosinophils # (Auto) 0.2 0.0-0.3 10^3/uL Basophils # (Auto) 0.1 0.0-0.1 10^3/uL Immature Granulocyte # (Auto) 0.0 0.0-0.1 10^3/uL Prothrombin Time 13.6 12.2-14.7 SEC INR Comment 1.0 0.8-1.4 Activated Partial Thromboplast Time 34 24-35 SEC D-Dimer 0.33 0.00-0.49 UG/ML Sodium Level 137 135-145 MMOL/L Potassium Level 4.0 3.6-5.0 MMOL/L Chloride Level 102 98-107 MMOL/L Carbon Dioxide Level 21 21-32 MMOL/L Anion Gap 14 5-14 MMOL/L Blood Urea Nitrogen 12 7-18 MG/DL Creatinine 0.95 0.60-1.30 MG/DL Estimat Glomerular Filtration Rate 112 BUN/Creatinine Ratio 13 Glucose Level 100 70-105 MG/DL Calcium Level 9.6 8.5-10.1 MG/DL Corrected Calcium 9.3 8.5-10.1 MG/DL Magnesium Level 2.2 1.6-2.4 MG/DL Total Bilirubin 0.7 0.1-1.0 MG/DL Aspartate Amino Transf (AST/SGOT) 30 5-34 U/L Alanine Aminotransferase (ALT/SGPT) 43 0-55 U/L Alkaline Phosphatase 58 40-136 U/L Troponin I < 0.028 < 0.028 <0.028 NG/ML Total Protein 8.1 6.4-8.2 GM/DL Albumin 4.4 3.2-4.5 GM/DL Influenza Type A (RT-PCR) Not Detected Not Detecte Influenza Type B (RT-PCR) Not Detected Not Detecte SARS-CoV-2 RNA (RT-PCR) Not Detected Not Detecte My Orders Orders - ESTEBAN CASPER APRN Ekg Tracing (08/19/22 16:33) Cbc With Automated Diff (08/19/22 16:41) Magnesium (08/19/22 16:41) Chest 1 View, Ap/Pa Only (08/19/22 16:41) Comprehensive Metabolic Panel (08/19/22 16:41) Protime With Inr (08/19/22 16:41) Partial Thromboplastin Time (08/19/22 16:41) Monitor-Rhythm Ecg Trace Only (08/19/22 16:41) Ed Iv/Invasive Line Start (08/19/22 16:41) Fibrin Degradation Products (08/19/22 16:41) Troponin I [place] (08/19/22 16:41) Covid 19 Inhouse Test (08/19/22 16:47) Influenza A And B By Pcr (08/19/22 16:47) Troponin I [place] (08/19/22 18:48) Vital Signs/I&O 08/19/22 08/19/22 16:29 20:03 Temp 36.8 Pulse 86 80 Resp 20 22 B/P (MAP) 147/87 (107) 144/77 Pulse Ox 97 95 O2 Delivery Room Air Room Air Blood Pressure Mean: 107 Progress Progress Note : Time: 16:52 Progress Note Patient seen and evaluated, resting comfortably in bed, no acute distress. Based on exam and symptoms, work-up initiated including CBC, CMP, magnesium, troponin, D-dimer, chest x-ray, EKG, COVID and flu swab. 1830 Labs reviewed. CBC grossly normal, CMP grossly normal, magnesium normal 2.2, troponin negative. Coags negative. D-dimer normal. Will repeat 3-hour troponin. Chest x-ray negative for acute cardiopulmonary process. 1940 repeat troponin negative. Results discussed with patient. Patient agreeable to discharge at this time. Discharge charge and return precautions provided Initial ECG Impression Date: Aug 19, 2022 Initial ECG Impression Time: 16:33 Initial ECG Rate: 84 Initial ECG Rhythm: Normal Sinus Initial ECG Intervals: Normal Initial ECG Impression: Normal Initial ECG Comparisson: Unchanged Diagnostic Imaging Diagonstic Imaging: Xray Plain Films/CT/US/NM/MRI: chest Comments [facility] [place], [place] NAME: ADEN MONTEZ [facility] REC#: [id number] PT STATUS: REG ER : 1995 PHYSICIAN: TREMAYNEESTEBAN RIBERA APRN ADMIT DATE: 08/19/22/ER Signed Date of Exam:08/19/22 CHEST 1 VIEW, AP/PA ONLY INDICATION: Chest pain. TECHNIQUE: Single view chest 4:59 PM. CORRELATION STUDY: 04/18/2020 FINDINGS: The heart size, mediastinal configuration and pulmonary vascularity are within normal limits. The lungs are clear with no consolidating infiltrate. There is no significant effusion or pneumothorax. IMPRESSION: 1. Negative appearing single view chest. Dictated by: Dictated on workstation # [id number] Dict: 08/19/22 1659 Trans: 08/19/22 1704 DO [id number] Interpreted by: TANYA WEBBER DO Electronically signed by: TANYA WEBBER DO 08/19/224 Departure Impression Primary Impression: Chest wall pain Disposition: 01 HOME, SELF-CARE Condition: Stable Departure-Patient Inst. Decision time for Depature: 19:41 Referrals: CHAU DIXON MD (PCP/Family) Primary Care Physician Patient Instructions: Chest Pain That Is Not Caused by the Heart (DC) Add. Discharge Instructions: You may try ibuprofen 800 mg every 8 hours with food as needed for pain. You may also try [id number] Prilosec or Pepcid. Follow-up with your primary care provider. Return for worsening pain, worsening shortness of breath, or any other new, concerning, or worsening symptoms. All discharge instructions reviewed with patient and/or family. Voiced understanding. ESTEBAN CASPER APRN Aug 19, 2022 16:47
[2022-08-19 16:55] LABS: BASOPHILS # (AUTO) 0.1 10^3/uL (0.0-0.1); BASOPHILS % (AUTO) 1 % (0-10); EOSINOPHILS # (AUTO) 0.2 10^3/uL (0.0-0.3); EOSINOPHILS % (AUTO) 2 % (0-10); HEMATOCRIT 43 % (40-54); HEMOGLOBIN 14.9 g/dL (13.3-17.7); LYMPHOCYTES # (AUTO) 3.4 10^3/uL (1.0-4.0); LYMPHOCYTES % (AUTO) 40 % (12-44); MEAN CORPUSCULAR HEMOGLOBIN 28 pg (25-34); MEAN CORPUSCULAR HGB CONC 35 g/dL (32-36); MEAN CORPUSCULAR VOLUME 80 fL (80-99); MEAN PLATELET VOLUME 10.7 fL (9.0-12.2); MONOCYTES # (AUTO) 0.9 10^3/uL (0.0-1.0); MONOCYTES % (AUTO) 11 % (0-12); NEUTROPHILS # (AUTO) 3.8 10^3/uL (1.8-7.8); NEUTROPHILS % (AUTO) 46 % (42-75); PLATELET COUNT 264 10^3/uL (130-400); WHITE BLOOD COUNT 8.4 10^3/uL (4.3-11.0)
--- NOTE | 2022-08-19 17:00 | Diagnostic Imaging Report ---
INDICATION: Chest pain. TECHNIQUE: Single view chest 4:59 PM. CORRELATION STUDY: 04/18/2020 FINDINGS: The heart size, mediastinal configuration and pulmonary vascularity are within normal limits. The lungs are clear with no consolidating infiltrate. There is no significant effusion or pneumothorax. IMPRESSION: 1. Negative appearing single view chest. Dictated by: Dictated on workstation # [id number]
[2022-08-19 17:08] LABS: ALBUMIN 4.4 GM/DL (3.2-4.5)
[2022-08-19 17:09] LABS: CALCIUM 9.6 MG/DL (8.5-10.1)
[2022-08-19 17:10] LABS: TOTAL PROTEIN 8.1 GM/DL (6.4-8.2)
[2022-08-19 17:12] LABS: BILIRUBIN,TOTAL 0.7 MG/DL (0.1-1.0)
[2022-08-19 17:14] LABS: CREATININE SERUM 0.95 MG/DL (0.60-1.30)
[2022-08-19 17:17] LABS: MAGNESIUM 2.2 MG/DL (1.6-2.4)
[2022-08-19 17:44] LABS: PROTHROMBIN TIME PATIENT 13.6 SEC (12.2-14.7)
[2022-08-19 20:03] VITALS: BP 144/77
== END 2022-08-19 20:03 | disposition home or self-care (01) ==
LOC: EDUNIT# 16:27 → ER 16:29
DX: R07.89 Other chest pain (principal); Z20.822 Contact with and (suspected) exposure to COVID-19
CPT/HCPCS: 36415; 71045; 80053; 83735; 84484; 85025; 85379; 85610; 85730; 87636; 93005; 93041

== ENCOUNTER → 2023-03-18 | Outpatient (CLI) | payer OTHER ==
--- NOTE | 2023-03-18 17:26 | Diagnostic Imaging Report ---
EXAMINATION: Abdomen 1 view HISTORY: FLANK PAIN, CHEST PAIN, HEMATURIA, ABD PAIN, SOB COMPARISON: None available. FINDINGS: There is a moderate amount of gas and stool throughout the colon. Nonobstructive bowel gas pattern. No radiopaque foreign body. The lung bases are clear. The osseous structures are intact. IMPRESSION: Moderate stool burden without other acute abnormality in the abdomen. Dictated by: Dictated on workstation # [id number]
[2023-03-18 17:35] LABS: BASOPHILS # (AUTO) 0.1 10^3/uL (0.0-0.1); BASOPHILS % (AUTO) 1 % (0-10); EOSINOPHILS # (AUTO) 0.2 10^3/uL (0.0-0.3); EOSINOPHILS % (AUTO) 2 % (0-10); HEMATOCRIT 42 % (40-54); HEMOGLOBIN 14.5 g/dL (13.3-17.7); LYMPHOCYTES # (AUTO) 2.8 10^3/uL (1.0-4.0); LYMPHOCYTES % (AUTO) 35 % (12-44); MEAN CORPUSCULAR HEMOGLOBIN 28 pg (25-34); MEAN CORPUSCULAR HGB CONC 34 g/dL (32-36); MEAN CORPUSCULAR VOLUME 81 fL (80-99); MEAN PLATELET VOLUME 10.7 fL (9.0-12.2); MONOCYTES # (AUTO) 0.7 10^3/uL (0.0-1.0); MONOCYTES % (AUTO) 9 % (0-12); NEUTROPHILS # (AUTO) 4.3 10^3/uL (1.8-7.8); NEUTROPHILS % (AUTO) 53 % (42-75); PLATELET COUNT 234 10^3/uL (130-400); WHITE BLOOD COUNT 8.1 10^3/uL (4.3-11.0)
[2023-03-18 17:41] LABS: ALBUMIN 4.5 GM/DL (3.2-4.5)
[2023-03-18 17:42] LABS: CHLORIDE 103 MMOL/L (98-107); SODIUM 137 MMOL/L (135-145)
[2023-03-18 17:43] LABS: CALCIUM 9.3 MG/DL (8.5-10.1)
[2023-03-18 17:44] LABS: GLUCOSE 101 MG/DL (70-105); TOTAL PROTEIN 8.3 GM/DL (6.4-8.2)
[2023-03-18 17:45] LABS: CARBON DIOXIDE 23 MMOL/L (21-32)
[2023-03-18 17:46] LABS: BILIRUBIN,TOTAL 0.6 MG/DL (0.1-1.0)
[2023-03-18 17:47] LABS: ALKALINE PHOSPHATASE 59 U/L (40-136)
[2023-03-18 17:48] LABS: CREATININE SERUM 0.96 MG/DL (0.60-1.30); GFR ESTIMATED 110
[2023-03-18 17:49] LABS: BUN/CREATININE RATIO 15
[2023-03-18 17:50] LABS: ALANINE AMINOTRANSFERASE 39 U/L (0-55)
--- NOTE | 2023-03-18 17:50 | Diagnostic Imaging Report ---
INDICATION: Chest pain and shortness of breath. PA and lateral chest obtained at 5:20 p.m. Heart and mediastinal silhouette are normal in appearance. The lungs are clear. There is no pneumothorax or pleural fluid. IMPRESSION: Negative chest. Dictated on workstation # [id number]
[2023-03-18 17:51] LABS: CREATINE KINASE 127 U/L (30-200)
== END ==
LOC: RT 17:06
PROVIDERS: ATTEND Physician Assistant
DX: R10.9 Unspecified abdominal pain (principal); R07.9 Chest pain, unspecified; R31.9 Hematuria, unspecified; R06.02 Shortness of breath; Z28.21 Immunization not carried out because of patient refusal
CPT/HCPCS: 36415; 71046; 74018; 80053; 82550; 83874; 84484; 85025; 93005